=== PATIENT | male | born 1990 | race African-American/Black ===

== ENCOUNTER 2017-03-21 22:46 | Emergency (ER) | payer OTHER ==
[~2017-03-21] VITALS: Ht 175.3 cm; Wt 134.5 kg
[~2017-03-21 22:46] MED LIST: FLEXERIL10 MG PO; NAPROSYN500 MG PO
[2017-03-22 03:26] VITALS: BP 119/75
== END 2017-03-22 03:26 | disposition home or self-care (01) ==
LOC: EME 22:46
DX: S61.012A Laceration without foreign body of left thumb without damage to nail, initial encounter (principal); W26.8XXA Contact with other sharp object(s), not elsewhere classified, initial encounter; Y92.512 Supermarket, store or market as the place of occurrence of the external cause; Y99.0 Civilian activity done for income or pay; Z23 Encounter for immunization
CPT/HCPCS: 99281; 99284

== ENCOUNTER 2017-11-18 22:36 | Emergency (ER) | payer OTHER ==
[2017-11-18 22:48] LABS: BASOPHIL (%) 0.2 % (0-1); EOSINOPHIL (%) 0.6 % (0-5); EOSINOPHIL COUNT 0.1 K/uL (0-0.3); HEMOGLOBIN 13.5 G/DL (12.5-16.6); IMMATURE GRANULOCYTE (%) 0.2 % (0.0-0.7); LYMPHOCYTE (%) 38.1 % (15-42); LYMPHOCYTE COUNT 3.4 K/uL (1.0-2.8); MCHC 32.9 G/DL (30.0-36.0); MCV 84.9 FL (86-99); MONOCYTE COUNT 0.6 K/uL (0-0.8); NEUTROPHIL (%) 53.9 % (45-76); NEUTROPHIL COUNT 4.9 K/uL (1.8-6.4); PLATELET COUNT 248 K/uL (156-360); RBC DIS.WIDTH-CV 13.2 % (11.8-14.6); RBC DIS.WIDTH-SD 41.4 % (39-53); RED BLOOD COUNT 4.83 M/uL (4.00-5.50)
[2017-11-18 22:59] LABS: AMYLASE 73 IU/L (1-118); CHLORIDE 104 mEq/L (99-109); POTASSIUM 3.6 mEq/L (3.7-5.4); SODIUM 139 mEq/L (136-147)
[2017-11-18 23:00] LABS: GLUCOSE 109 mg/dL (70-99)
[2017-11-18 23:03] LABS: SERUM ETHYL ALCOHOL < 10 mg/dL
[2017-11-18 23:04] LABS: CREATININE 1.3 mg/dL (0.6-1.3); GFR ESTIMATE (CALCULATED) > 59 mL/min/ (58.99-99999)
[2017-11-18 23:05] LABS: UREA NITROGEN (BUN) 18 mg/dL (9-23)
[2017-11-18 23:07] LABS: LIPASE 22 U/L (1.0-51.0)
== END 2017-11-19 01:03 | disposition home or self-care (01) ==
LOC: TRA 22:36
PROVIDERS: Emergency Medicine
DX: S80.11XA Contusion of right lower leg, initial encounter (principal); S60.222A Contusion of left hand, initial encounter; S60.221A Contusion of right hand, initial encounter; S06.2X9A Diffuse traumatic brain injury with loss of consciousness of unspecified duration, initial encounter; V03.90XA Pedestrian on foot injured in collision with car, pick-up truck or van, unspecified whether traffic or nontraffic accident, initial encounter; Y93.02 Activity, running; Y92.410 Unspecified street and highway as the place of occurrence of the external cause; J32.0 Chronic maxillary sinusitis; N28.89 Other specified disorders of kidney and ureter; J45.909 Unspecified asthma, uncomplicated
CPT/HCPCS: 70450; 71045; 71260; 72125; 73130; 73552; 73590; 74177; 80048; 81003; 82150; 83690; 85025; 86850; 86900; 86901; 99281; 99285; G0480

== ENCOUNTER 2018-03-10 14:02 | Emergency (ER) | payer SELFPAY ==
[~2018-03-10] VITALS: Ht 175.3 cm; Wt 126.6 kg
[2018-03-10] MEDS ORDERED: VOLTAREN 1% GE100 GM TP (18:28)
[2018-03-10] MEDS ORDERED: MOTRIN800 MG PO (18:28)
[2018-03-10] MEDS ORDERED: LIDODERM 5% P1 PATCH TD (18:28)
[2018-03-10] MEDS ORDERED: BACLOFEN10 MG PO (18:28)
[2018-03-10 18:39] VITALS: BP 136/86
== END 2018-03-10 18:41 | disposition home or self-care (01) ==
LOC: EME 14:02
DX: M25.551 Pain in right hip (principal); M79.661 Pain in right lower leg; M54.31 Sciatica, right side; J45.909 Unspecified asthma, uncomplicated
CPT/HCPCS: 73502; 93971; 99281; 99283; J1885